=== PATIENT | female | born 1995 | race Caucasian/White ===

== ENCOUNTER 2018-07-26 13:14 | Emergency (ER) | payer OTHER ==
--- OUTSIDE RECORDS SUMMARY | 2018-07-26 14:35 | XMS REPORT | Continuity of Care Document ---
:1995 External Reference #:[id number] Author Name Juani Coel Care Team Providers Name Role Phone Patient's Choice Primary Care Physician Unavailable Payers Date Identification Numbers Payment Provider Subscriber Policy Number: [id number] [employer] Name: [id number] [address] PayID: [id number] [place] [address] Advance Directives Description No Information Available Problems Description No Information Family History Description No Information Available Social History Type Date Description Comments Sex Unknown Tobacco Use Start: Unknown Patient has never smoked Smoking Status Reviewed: 07/04/18 Patient has never smoked Allergies, Adverse Reactions, Alerts Description No Known Drug Allergies Medications Medication Date Status Form Strength Qnty SIG Indications Ordering Provider Mariely Active Tablets 0.18/0.215/0. Unknown 0 25 mg-25 mcg Immunizations Description No Information Available Vital Signs Date Vital Result Comment 07/04/2018 9:02am Height 66 inches 5'6" Weight 125.00 lb Heart Rate 69 /min BP Systolic 106 mmHg BP Diastolic 70 mmHg Body Temperature 97.9 F Pain Level 5 BMI (Body Mass Index) 20.2 kg/m2 Results Description No Information Available Procedures Description No Information Available Encounters Description No Information Available Plan of Treatment 07/04/2018 - Lluvia Mercer, [id number] Pain in right kneeNew Xrays:Knee 3 Views RT , Ordered: 07/04/18S76.301A Unspecified injury of muscle, fascia and tendon of the posteNew Therapy:Physical TherapyFollow up:Follow up: as needed
[2018-07-26 14:48] VITALS: BP 126/85
[2018-07-26] MEDS ORDERED: Azithromycin TAB* 250 MG PO ONE (14:56)
[2018-07-26] MEDS ORDERED: cefTRIAXone VIAL(*) 250 MG VIAL IM ONE (14:57)
--- NOTE | 2018-07-26 15:12 | UC ---
Complaint Female HPI - HPI Summary HPI Summary: Pt presents with c/o known exposure to chlamydia. Pt is in a new sexual relationship with partner. Boyfriend was told he tested positive for chlamydia today. - History Of Current Complaint Chief Complaint: UCSTDScreening Stated Complaint: PERSONAL Time Seen by Provider: 07/26/18 14:50 Hx Obtained From: Patient Hx Last Menstrual Period: 07/10/18 ?: No Onset/Duration: Sudden Onset Severity Currently: None Pain Intensity: 0 Character: Not Applicable Aggravating Factor(s): Nothing Associated Signs And Symptoms: Positive: Negative - Risk Factors Ectopic Risk Factor: Negative Ovarian Torsion Risk Factor: Reproductive Age - Allergies/Home Medications Allergies/Adverse Reactions: Allergies Allergy/AdvReac Type Severity Reaction Status Date / Time No Known Allergies Allergy Verified 07/26/18 14:41 Home Medications: Home Medications Doxycycline Hyclate 50 mg Cap [Doxycycline Hyclate] 50 mg PO DAILY 07/26/18 [ History Confirmed 07/26/18] Norgestimate-Ethinyl Estradiol [Slo-Uz-Iggckf 0.18/0.215/0.25 mg-25 Mcg] 1 tab PO DAILY 07/26/18 [History Confirmed 07/26/18] PMH/Surg Hx/FS Hx/Imm Hx Previously Healthy: Yes - Surgical History Surgical History: Yes Surgery Procedure, Year, and Place: Left knee sx x 2 for torn meniscus - Family History Known Family History: Positive: Cardiac Disease - Social History Occupation: Student Lives: Dormitory/Roommates Alcohol Use: Rare Substance Use Type: None Smoking Status (MU): Former Smoker Have You Smoked in the Last Year: No - Immunization History Vaccination Up to Date: Yes Review of Systems All Other Systems Reviewed And Are Negative: Yes Constitutional: Positive: Negative Skin: Positive: Negative Eyes: Positive: Negative ENT: Positive: Negative Respiratory: Positive: Negative Cardiovascular: Positive: Negative Gastrointestinal: Positive: Negative Genitourinary: Positive: Negative Motor: Positive: Negative Neurovascular: Positive: Negative Musculoskeletal: Positive: Negative Neurological: Positive: Negative Psychological: Positive: Negative Is Patient Immunocompromised?: No Physical Exam Triage Information Reviewed: Yes Appearance: Well-Appearing Vital Signs: Initial Vital Signs Temp 98.1 F 07/26/18 14:43 Pulse 84 07/26/18 14:43 Resp 20 03/30/19 14:43 BP 126/85 07/26/18 14:43 Pulse Ox 100 07/26/18 14:43 Vital Signs Reviewed: Yes Eye Exam: Normal ENT Exam: Normal Dental Exam: Normal Neck exam: Normal Respiratory Exam: Normal Musculoskeletal Exam: Normal Neurological Exam: Normal Psychological Exam: Normal Skin Exam: Normal Complaint Female Dx - Differential Dx/Diagnosis Differential Diagnosis/HQI/PQRI: Sexually Transmitted Disease, Urinary Tract Infection Provider Diagnosis: Sexually transmitted disease exposure Discharge - Sign-Out/Discharge Documenting (check all that apply): Patient Departure All imaging exams completed and their final reports reviewed: No Studies - Discharge Plan Condition: Stable Disposition: HOME Patient Education Materials: Sexually Transmitted Diseases (ED), Safe Sex (ED) Referrals: Urmila Morris MD [Primary Care Provider] - If Needed - Billing Disposition and Condition Condition: STABLE Disposition: Home - Attestation Statements Provider Attestation: I was available for consult. This patient was seen by the GIOVANNI. The patient was not presented to, seen by, or examined by me. -Keara
[2018-07-26] MEDS ORDERED: Lidocaine 1% MPF* 2 ML VIAL ONE (15:27)
[2018-07-28 13:45] LABS: Neisseria gonorrhoeae (GC) RNA Negative (Negative)
== END 2018-07-26 15:57 | disposition home or self-care (01) ==
LOC: UCCORT 13:14
DX: Z20.2 Contact with and (suspected) exposure to infections with a predominantly sexual mode of transmission (principal); Z87.891 Personal history of nicotine dependence
CPT/HCPCS: 36415; 86592; 86703; 87491; 87591; 96372; 99212; A9270-GY; G0463; J0696